=== PATIENT | male | born 1960 | race Caucasian/White ===

== ENCOUNTER 2020-05-17 11:32 | Emergency (ER) | payer BC ==
[2020-05-17] MEDS ORDERED: Lactated Ringers 1,000 ML IV ONE (11:57)
[2020-05-17] MEDS ORDERED: Sodium Chloride 0.9% 10 ML Syringe FLUSH PRN (11:57)
[2020-05-17] MEDS ORDERED: Sodium Chloride 0.9% 2.5 ML Syringe FLUSH PRN (11:57)
[2020-05-17] MEDS ORDERED: Aspirin 325 MG Tab PO ONE (12:22)
[2020-05-17 12:52] LABS: CARBON DIOXIDE,CO2 22.1 mmol/L (21.0-32.0); POTASSIUM,K 4.1 mmol/L (3.5-5.1)
--- NOTE | 2020-05-17 13:06 | CR ---
Chest: Portable view of the chest was obtained. Comparison: No prior chest imaging is available. Heart size and mediastinum are normal for portable technique. Lungs are clear with no acute parenchymal change. Bony structures are grossly intact. Impression: 1. Nothing acute is seen on portable chest x-ray. Diagnostic code #1 This report was dictated in MDT
[2020-05-17] MEDS ORDERED: Heparin Sodium 5,000 Units/ML Vial IVPUSH ONE (13:19)
--- NOTE | 2020-05-17 13:20 | EDM.PDOC ---
ED HPI GENERAL MEDICAL PROBLEM - General Chief Complaint: General Stated Complaint: LOW BLOOD PRESSURE; WEAK Time Seen by Provider: 05/17/20 11:55 Source of Information: Reports: Patient History Limitations: Reports: No Limitations - History of Present Illness INITIAL COMMENTS - FREE TEXT/NARRATIVE: 59-year-old male past medical history of CAD status post stenting, peripheral ar terial stents, hypertension, atrial fibrillation on apixaban, systolic congestive heart failure presenting with lightheadedness. 2-day history of lightheadedness, generalized weakness. Checked his blood pressure at home last night and was concerned that it was 90s over 70s. Today he felt worse so he came to the emergency department. Denies any chest discomfort, shortness of breath, fever, recent illness, leg swelling, history of venous thromboembolism. No recent vomiting, diarrhea, GI bleeding, or medication changes. ROS: A 10-point review of systems was negative, except as noted in the HPI (or in the ROS section of this note). Past medical history: Reviewed, no additional pertinent history. Surgical history: Reviewed in system, no additional pertinent history. Social history: Reviewed in system, no additional pertinent history. Family history: Reviewed in system, no additional pertinent history. PHYSICAL EXAM Vital signs reviewed. Nursing notes reviewed. Constitutional: Awake, alert, non-distressed. Head: Normocephalic, atraumatic. Eyes: EOMI, conjunctiva normal, no discharge, no scleral icterus. Ears, Nose, Throat: External ears and nose normal, moist oral mucosa. Cardiovascular: Tachycardic, 2+ radial pulse, capillary refill less than 2 seconds. Irregularly irregular pulse. RRR no MRG. Trace lower extremity edema. Pulmonary: normal work of breathing, no accessory muscle use. CTA BL Abdomen/GI: Soft, nontender, nondistended, no guarding or rigidity, no masses. Musculoskeletal: No deformities. Integumentary: Appropriate color for ethnicity, warm, dry, no pallor or jaundice, no rash. Neurologic: Alert, answering questions appropriately, normal speech, no facial droop, moving all extremities well. Psychiatric: Appropriate mood and affect, normal thought process. - Related Data Allergies Allergy/AdvReac Type Severity Reaction Status Date / Time No Known Allergies Allergy Verified 05/17/20 11:51 Home Meds: Home Meds Apixaban [Eliquis] 5 mg PO BID 05/17/20 [History] Ascorbate Calcium [Vitamin C] 500 mg PO DAILY 05/17/20 [History] Cholecalciferol (Vitamin D3) [Vitamin D3] 25 mcg PO DAILY 05/17/20 [History] Clopidogrel [Plavix] 75 mg PO DAILY 05/17/20 [History] Cyclobenzaprine [Flexeril] 10 mg PO TID PRN 05/17/20 [History] Furosemide 20 mg PO DAILY PRN 05/17/20 [History] Metoprolol Succinate 200 mg PO DAILY 05/17/20 [History] Nitroglycerin [Nitrostat] 0.4 mg SL ASDIRECTED PRN 05/17/20 [History] Potassium Chloride 20 meq PO DAILY 05/17/20 [History] Rosuvastatin Calcium 40 mg PO DAILY 05/17/20 [History] lisinopriL [Lisinopril] 5 mg PO DAILY 05/17/20 [History] Past Medical History Cardiovascular History: Reports: Afib, Angina, CAD, Heart Failure, [place], PVD, Stents Musculoskeletal History: Reports: Back Pain, Chronic Neurological History: Reports: TIA - Past Surgical History Cardiovascular Surgical History: Reports: Carotid Stents, Other (See Below) Other Cardiovascular Surgeries/Procedures: Carotid Social & Family History - Family History Cardiac: Reports: Bypass, CAD : Reports: Renal Disease/Insufficiency - Tobacco Use Smoking Status *Q: Current Every Day Smoker Years of Tobacco use: 40 Packs/Tins Daily: 0.1 - Caffeine Use Caffeine Use: Reports: Coffee - Recreational Drug Use Recreational Drug Use: No ED ROS GENERAL - Review of Systems Review Of Systems: See Below ED EXAM, GENERAL - Physical Exam Exam: See Below EKG INTERPRETATION EKG Interpretation Comments: Atrial fibrillation with rapid ventricular response. Diffuse ST segment depression in precordial and lateral limb leads with ST elevation in aVR, concerning for multivessel disease. Course - Vital Signs Text/Narrative:: Patient was roomed immediately, noted to be tachycardic and somewhat hypoxic with room air saturations of 90. Atrial fibrillation with RVR. IV access established and labs were sent. Placed on supplemental oxygen. Twelve-lead EKG is concerning for diffuse subendocardial ischemia, I suspect due to multivessel disease and less likely due to a left main coronary artery occlusion given that there is no evidence of cardiogenic shock at this point. D-dimer is negative and patient is anticoagulated. CBC shows mild leukocytosis. Lactate is normal. Creatinine elevated at 1.5. Troponin significantly elevated at 3.976. BNP is 1471. Chest x-ray is clear. Patient denies any chest discomfort or shortness of breath. Administered full dose aspirin. Opted for amiodarone infusion given blood pressures fluctuating between 90 and 120 along with resting tachycardia, felt that a beta-arlyn or calcium channel arlyn may worsen hemodynamics and precipitate hypotension. Heparin bolus and infusion given. We will plan to transfer to [facility] in [place] per patient request as his vamp stitcher is at this facility. Aeromedical transport activated. I spoke with both the vamp stitcher and the hospitalist at [facility] who agreed to accept the transfer. Last Recorded V/S: Last Vital Signs Temp 36.2 C 05/17/20 13:34 Pulse 121 H 05/17/20 13:34 Resp 18 05/17/20 13:34 BP 112/71 05/17/20 13:34 Pulse Ox 98 05/17/20 13:34 - Orders/Labs/Meds Orders: Active Orders 24 hr Category Date Time Status Cardiac Monitoring [RC] . DIRECTED Care 05/17/20 11:57 Active EKG Documentation Completion [RC] STAT Care 05/17/20 11:57 Active Pulse Oximetry [RC] ASDIRECTED Care 05/17/20 11:57 Active PTT,PARTIAL THROMBOPLSTIN TIME [COAG] Q6H Lab 05/17/20 19:30 Ordered PTT,PARTIAL THROMBOPLSTIN TIME [COAG] Q6H Lab 05/18/20 01:30 Ordered PTT,PARTIAL THROMBOPLSTIN TIME [COAG] Q6H Lab 05/18/20 07:30 Ordered PTT,PARTIAL THROMBOPLSTIN TIME [COAG] Q6H Lab 05/18/20 13:30 Ordered PTT,PARTIAL THROMBOPLSTIN TIME [COAG] Q6H Lab 05/18/20 19:30 Ordered PTT,PARTIAL THROMBOPLSTIN TIME [COAG] Q6H Lab 05/19/20 01:30 Ordered Amiodarone In Dextrose,Iso-Osm [Nexterone in Dextrose Med 05/17/20 13:00 Active 360 MG/200 ML] 360 mg in 200 ml IV ASDIRECTED Heparin Sod,Pork In 0.45% Nacl [Heparin-1/2Ns 25,000 Med 05/17/20 13:30 Active Units/500] 25,000 unit in 500 ml IV TITRATE Sodium Chloride 0.9% [Saline Flush] Med 05/17/20 11:57 Active 10 ml FLUSH ASDIRECTED PRN Sodium Chloride 0.9% [Saline Flush] Med 05/17/20 11:57 Active 2.5 ml FLUSH ASDIRECTED PRN Saline Lock Insert [OM.PC] Stat Oth 05/17/20 11:57 Ordered Medication Orders Amiodarone HCl/Dextrose (Nexterone In Dextrose 360 Mg/200 Ml) 360 mg in 200 mls @ 33.333 mls/hr IV ASDIRECTED TERRENCE; Protocol Last Admin: 05/17/20 13:28 Dose: 1 mg/min, 33.333 mls/hr Documented by: MARCIA Heparin Sodium/Sodium Chloride (Heparin-1/2ns 25,000 Units/500) 25,000 unit in 500 mls @ 25.038 mls/hr IV TITRATE TERRENCE; Protocol Last Admin: 05/17/20 13:33 Dose: 12 units/kg/hr, 25.038 mls/hr Documented by: MARCIA Cosigned by: MEGAN Sodium Chloride (Saline Flush) 10 ml FLUSH ASDIRECTED PRN PRN Reason: Keep Vein Open Last Admin: 05/17/20 13:16 Dose: 10 ml Documented by: MACRIA Sodium Chloride (Saline Flush) 2.5 ml FLUSH ASDIRECTED PRN PRN Reason: Keep Vein Open Last Admin: 05/17/20 13:16 Dose: 2.5 ml Documented by: MARCIA Labs: Laboratory Tests 05/17/20 05/17/20 05/17/20 Range/Units 12:09 12:09 12:09 WBC 12.76 H (4.0-11.0) K/uL RBC 4.27 L (4.50-5.90) M/uL Hgb 13.4 (13.0-17.0) g/dL Hct 39.2 (38.0-50.0) % MCV 91.8 (80.0-98.0) fL MCH 31.4 (27.0-32.0) pg MCHC 34.2 (31.0-37.0) g/dL RDW Std Deviation 42.2 (28.0-62.0) fl RDW Coeff of Jose Eduardo 13 (11.0-15.0) % Plt Count 239 (150-400) K/uL MPV 9.90 (7.40-12.00) fL Neut % (Auto) 72.1 (48.0-80.0) % Lymph % (Auto) 18.8 (16.0-40.0) % Carter % (Auto) 8.5 (0.0-15.0) % Eos % (Auto) 0.5 (0.0-7.0) % Baso % (Auto) 0.1 (0.0-1.5) % Neut # (Auto) 9.2 H (1.4-5.7) K/uL Lymph # (Auto) 2.4 (0.6-2.4) K/uL Carter # (Auto) 1.1 H (0.0-0.8) K/uL Eos # (Auto) 0.1 (0.0-0.7) K/uL Baso # (Auto) 0.0 (0.0-0.1) K/uL Nucleated RBC % 0.0 /100WBC Nucleated RBCs # 0 K/uL APTT (18.6-31.3) SEC D-Dimer, Quantitative (0.0-0.50) mg/L FEU VBG pH (7.31-7.41) VBG pCO2 (35-45) mmHG VBG pO2 (30-40) mmHG VBG HCO3 (22-30) mEq/L VBG Total CO2 (41-51) mmol/L VBG Base Excess (-3.0-3.0) Lactate 1.1 (0.20-2.00) mmol/L Sodium 135 L (136-148) mmol/L Potassium 4.1 (3.5-5.1) mmol/L Chloride 101 (98-107) mmol/L Carbon Dioxide 22.1 (21.0-32.0) mmol/L BUN 27 H (7.0-18.0) mg/dL Creatinine 1.5 H (0.8-1.3) mg/dL Est Cr Clr Drug Dosing 61.40 mL/min Estimated GFR (MDRD) 48.2 ml/min Glucose 107 H (74-106) mg/dL Calcium 8.4 L (8.5-10.1) mg/dL Total Bilirubin 0.4 (0.2-1.0) mg/dL AST 47 H (15-37) IU/L ALT 33 (14-63) IU/L Alkaline Phosphatase 77 (46-116) U/L Troponin I 3.976 H* (0.000-0.056) ng/mL B-Natriuretic Peptide (<100) PG/ML Total Protein 7.6 (6.4-8.2) g/dL Albumin 3.5 (3.4-5.0) g/dL Globulin 4.1 H (2.6-4.0) g/dL Albumin/Globulin Ratio 0.9 (0.9-1.6) 05/17/20 05/17/20 05/17/20 Range/Units 12:09 12:09 12:09 WBC (4.0-11.0) K/uL RBC (4.50-5.90) M/uL Hgb (13.0-17.0) g/dL Hct (38.0-50.0) % MCV (80.0-98.0) fL MCH (27.0-32.0) pg MCHC (31.0-37.0) g/dL RDW Std Deviation (28.0-62.0) fl RDW Coeff of Jose Eduardo (11.0-15.0) % Plt Count (150-400) K/uL MPV (7.40-12.00) fL Neut % (Auto) (48.0-80.0) % Lymph % (Auto) (16.0-40.0) % Carter % (Auto) (0.0-15.0) % Eos % (Auto) (0.0-7.0) % Baso % (Auto) (0.0-1.5) % Neut # (Auto) (1.4-5.7) K/uL Lymph # (Auto) (0.6-2.4) K/uL Carter # (Auto) (0.0-0.8) K/uL Eos # (Auto) (0.0-0.7) K/uL Baso # (Auto) (0.0-0.1) K/uL Nucleated RBC % /100WBC Nucleated RBCs # K/uL APTT (18.6-31.3) SEC D-Dimer, Quantitative 0.46 (0.0-0.50) mg/L FEU VBG pH 7.43 H (7.31-7.41) VBG pCO2 31 L (35-45) mmHG VBG pO2 50 H (30-40) mmHG VBG HCO3 21 L (22-30) mEq/L VBG Total CO2 18 L (41-51) mmol/L VBG Base Excess -2.6 (-3.0-3.0) Lactate (0.20-2.00) mmol/L Sodium (136-148) mmol/L Potassium (3.5-5.1) mmol/L Chloride (98-107) mmol/L Carbon Dioxide (21.0-32.0) mmol/L BUN (7.0-18.0) mg/dL Creatinine (0.8-1.3) mg/dL Est Cr Clr Drug Dosing mL/min Estimated GFR (MDRD) ml/min Glucose (74-106) mg/dL Calcium (8.5-10.1) mg/dL Total Bilirubin (0.2-1.0) mg/dL AST (15-37) IU/L ALT (14-63) IU/L Alkaline Phosphatase (46-116) U/L Troponin I (0.000-0.056) ng/mL B-Natriuretic Peptide 1471 H (<100) PG/ML Total Protein (6.4-8.2) g/dL Albumin (3.4-5.0) g/dL Globulin (2.6-4.0) g/dL Albumin/Globulin Ratio (0.9-1.6) 30/20 Range/Units 12:09 WBC (4.0-11.0) K/uL RBC (4.50-5.90) M/uL Hgb (13.0-17.0) g/dL Hct (38.0-50.0) % MCV (80.0-98.0) fL MCH (27.0-32.0) pg MCHC (31.0-37.0) g/dL RDW Std Deviation (28.0-62.0) fl RDW Coeff of Jose Eduardo (11.0-15.0) % Plt Count (150-400) K/uL MPV (7.40-12.00) fL Neut % (Auto) (48.0-80.0) % Lymph % (Auto) (16.0-40.0) % Carter % (Auto) (0.0-15.0) % Eos % (Auto) (0.0-7.0) % Baso % (Auto) (0.0-1.5) % Neut # (Auto) (1.4-5.7) K/uL Lymph # (Auto) (0.6-2.4) K/uL Carter # (Auto) (0.0-0.8) K/uL Eos # (Auto) (0.0-0.7) K/uL Baso # (Auto) (0.0-0.1) K/uL Nucleated RBC % /100WBC Nucleated RBCs # K/uL APTT 27.5 (18.6-31.3) SEC D-Dimer, Quantitative (0.0-0.50) mg/L FEU VBG pH (7.31-7.41) VBG pCO2 (35-45) mmHG VBG pO2 (30-40) mmHG VBG HCO3 (22-30) mEq/L VBG Total CO2 (41-51) mmol/L VBG Base Excess (-3.0-3.0) Lactate (0.20-2.00) mmol/L Sodium (136-148) mmol/L Potassium (3.5-5.1) mmol/L Chloride (98-107) mmol/L Carbon Dioxide (21.0-32.0) mmol/L BUN (7.0-18.0) mg/dL Creatinine (0.8-1.3) mg/dL Est Cr Clr Drug Dosing mL/min Estimated GFR (MDRD) ml/min Glucose (74-106) mg/dL Calcium (8.5-10.1) mg/dL Total Bilirubin (0.2-1.0) mg/dL AST (15-37) IU/L ALT (14-63) IU/L Alkaline Phosphatase (46-116) U/L Troponin I (0.000-0.056) ng/mL B-Natriuretic Peptide (<100) PG/ML Total Protein (6.4-8.2) g/dL Albumin (3.4-5.0) g/dL Globulin (2.6-4.0) g/dL Albumin/Globulin Ratio (0.9-1.6) Meds: Medications Generic Name Dose Route Start Last Admin Trade Name Freq PRN Reason Stop Dose Admin Amiodarone HCl/Dextrose 360 mg in 200 mls @ 33.333 mls/hr 05/17/20 13:00 05/17/20 13:28 Nexterone In Dextrose 360 Mg/200 Ml IV 1 mg/min ASDIRECTED TERRENCE 33.333 mls/hr Administration Protocol 1 MG/MIN Heparin Sodium/Sodium Chloride 25,000 unit in 500 mls @ 25.038 mls/hr 05/17/20 13:30 05/17/20 13:33 Heparin-1/2ns 25,000 Units/500 IV 12 units/kg/hr TITRATE TERRENCE 25.038 mls/hr Administration Protocol 12 UNITS/KG/HR Sodium Chloride 10 ml 05/17/20 11:57 05/17/20 13:16 Saline Flush FLUSH 10 ml ASDIRECTED PRN Administration Keep Vein Open Sodium Chloride 2.5 ml 05/17/20 11:57 05/17/20 13:16 Saline Flush FLUSH 2.5 ml ASDIRECTED PRN Administration Keep Vein Open Discontinued Medications Generic Name Dose Route Start Last Admin Trade Name Freq PRN Reason Stop Dose Admin Aspirin 325 mg 05/17/20 12:22 05/17/20 12:32 Aspirin PO 05/17/20 12:23 325 mg ONETIME ONE Administration Heparin Sodium (Porcine) 5,000 units 05/17/20 13:19 05/17/20 13:31 Heparin Sodium IVPUSH 05/17/20 13:20 5,000 units ONETIME ONE Administration Lactated Ringer's 1,000 mls @ 999 mls/hr 05/17/20 11:57 05/17/20 12:31 Ringers, Lactated IV 05/17/20 12:57 999 mls/hr .BOLUS ONE Administration Amiodarone HCl/Dextrose 100 mls @ 600 mls/hr 05/17/20 12:59 05/17/20 13:14 Nexterone In Dextrose 150 Mg/100 Ml IV 05/17/20 13:08 600 mls/hr ONETIME ONE Administration Protocol Departure - Departure Time of Disposition: 13:20 Disposition: DC/Tfer to Acute Hospital 02 Condition: Good Clinical Impression: NSTEMI (non-ST elevated myocardial infarction) - Discharge Information Referrals: Jermaine Gillette MD [Primary Care Provider] - Forms: ED Department Discharge Critical Care Note - Critical Care Note Total Time (mins): 30 Comments: Critical care time is exclusive of billable procedures and the time to perform these procedures. Critical care time was used to prevent vital system organ failure and deterioration. Critical care time includes bedside management and high-complexity decision making requiring my highest level of mental preparedness and attention. This includes reviewing the patient's chart and prior medical records, ordering and reviewing interpreting laboratory studies and imaging results, interpretation of vital signs and EKG, pulse oximetry, and discussion with the admitting team along with EMS and nursing staff. Critical care for non-ST segment elevation myocardial infarction, elevated troponin, atrial fibrillation with rapid ventricular response. Supplemental oxygen, amiodarone infusion, heparin infusion. Aeromedical transport to receiving hospital. Sepsis Event Note (ED) - Evaluation Sepsis Screening Result: No Definite Risk - Focused Exam Vital Signs: Vital Signs Temp Pulse Resp BP Pulse Ox 05/17/20 13:34 36.2 C 121 H 18 112/71 98 05/17/20 11:49 36.9 C 132 H 18 120/65 93 L - My Orders Last 24 Hours: My Active Orders 05/17/20 11:57 Cardiac Monitoring [RC] . DIRECTED EKG Documentation Completion [RC] STAT Pulse Oximetry [RC] ASDIRECTED Sodium Chloride 0.9% [Saline Flush] 10 ml FLUSH ASDIRECTED PRN Sodium Chloride 0.9% [Saline Flush] 2.5 ml FLUSH ASDIRECTED PRN Saline Lock Insert [OM.PC] Stat 05/17/20 13:00 Amiodarone In Dextrose,Iso-Osm [Nexterone in Dextrose 360 MG/200 ML] 360 mg in 200 ml IV ASDIRECTED 05/17/20 13:30 Heparin Sod,Pork In 0.45% Nacl [Heparin-1/2Ns 25,000 Units/500] 25,000 unit in 500 ml IV TITRATE 05/17/20 19:30 PTT,PARTIAL THROMBOPLSTIN TIME [COAG] Q6H 05/18/20 01:30 PTT,PARTIAL THROMBOPLSTIN TIME [COAG] Q6H 05/18/20 07:30 PTT,PARTIAL THROMBOPLSTIN TIME [COAG] Q6H 05/18/20 13:30 PTT,PARTIAL THROMBOPLSTIN TIME [COAG] Q6H 05/18/20 19:30 PTT,PARTIAL THROMBOPLSTIN TIME [COAG] Q6H 05/19/20 01:30 PTT,PARTIAL THROMBOPLSTIN TIME [COAG] Q6H - Assessment/Plan Last 24 Hours: My Active Orders 05/17/20 11:57 Cardiac Monitoring [RC] . DIRECTED EKG Documentation Completion [RC] STAT Pulse Oximetry [RC] ASDIRECTED Sodium Chloride 0.9% [Saline Flush] 10 ml FLUSH ASDIRECTED PRN Sodium Chloride 0.9% [Saline Flush] 2.5 ml FLUSH ASDIRECTED PRN Saline Lock Insert [OM.PC] Stat 05/17/20 13:00 Amiodarone In Dextrose,Iso-Osm [Nexterone in Dextrose 360 MG/200 ML] 360 mg in 200 ml IV ASDIRECTED 05/17/20 13:30 Heparin Sod,Pork In 0.45% Nacl [Heparin-1/2Ns 25,000 Units/500] 25,000 unit in 500 ml IV TITRATE 05/17/20 19:30 PTT,PARTIAL THROMBOPLSTIN TIME [COAG] Q6H 05/18/20 01:30 PTT,PARTIAL THROMBOPLSTIN TIME [COAG] Q6H 05/18/20 07:30 PTT,PARTIAL THROMBOPLSTIN TIME [COAG] Q6H 05/18/20 13:30 PTT,PARTIAL THROMBOPLSTIN TIME [COAG] Q6H 05/18/20 19:30 PTT,PARTIAL THROMBOPLSTIN TIME [COAG] Q6H 05/19/20 01:30 PTT,PARTIAL THROMBOPLSTIN TIME [COAG] Q6H
[2020-05-17] MEDS ORDERED: Heparin Sod,Pork In 0.45% Nacl 25,000 UNIT/500 ML IV.SOLN IV SCH (13:30)
== END 2020-05-17 14:00 ==
LOC: MW.ED 11:32
DX: I21.4 Non-ST elevation (NSTEMI) myocardial infarction (principal); I48.91 Unspecified atrial fibrillation; I25.2 Old myocardial infarction; I25.10 Atherosclerotic heart disease of native coronary artery without angina pectoris; Z95.5 Presence of coronary angioplasty implant and graft; Z86.73 Personal history of transient ischemic attack (TIA), and cerebral infarction without residual deficits; Z79.01 Long term (current) use of anticoagulants; Z79.02 Long term (current) use of antithrombotics/antiplatelets; Z79.899 Other long term (current) drug therapy
CPT/HCPCS: 36415; 71045; 80053; 82803; 83605; 83880; 84484; 85025; 85379; 85730; 93005; 96365; 96368; 99285; A9270; J0282; J1644; J7120; 99291